=== PATIENT | male | born 1960 | race Caucasian/White ===

== ENCOUNTER 2017-06-05 00:26 | Emergency (ER) | payer BC, OTHER ==
--- NOTE | 2017-06-05 00:59 | ERNOTE ---
Psychological HPI - Date Date of Service: 06/05/17 - General Chief Complaint: Psychiatric Problem Source: Reports: patient, police - Immun/Allergies/Home Medications Allergies/Adverse Reactions: Allergies No Known Allergies Allergy (Verified 06/05/17 01:52) Home Medications: HOME MEDICATIONS Levothyroxine Sodium [Synthroid] 75 mcg PO DAILY 04/27/13 [Last Taken 04/28/13] Multivitamins [Multivitamin Eduardo] 1 cap PO DAILY 04/28/13 [Last Taken 04/28/13 ] Acetaminophen [Tylenol] 650 mg PO Q4H PRN #0 tablet 04/30/13 [Last Taken Unknown ] Cephalexin 500 mg PO BID #24 tablet 04/30/13 [Last Taken Unknown] Metoprolol Tartrate [Lopressor] 50 mg PO BID #0 tablet 04/30/13 [Last Taken Unknown] Neomycin/Bacitracin/Polymyxinb [Neosporin Ointment] 1 appl TP DAILY@0700 #0 tube 04/30/13 [Last Taken Unknown] Sulfamethoxazole/Trimethoprim [Bactrim Ds] 1 tab PO BID #123 tablet 04/30/13 [ Last Taken Unknown] amLODIPine BESYLATE [Norvasc] 5 mg PO BID #0 tablet 04/30/13 [Last Taken Unknown ] - History of Present Illness Narrative: This is a 56-year-old gentleman brought in by the police with complaint of suicidal ideation. The patient was apparently stopped this evening for speeding. When the precinct police sergeant was going to run his license plate the patient fled and let the police on a case. They finally apprehended him. His blood alcohol blew out at 140 or higher. The patient admits that he has been drinking. When he was being interviewed by the police he admitted that he has daily suicidal thoughts. His plan is to run in front of a truck when he is on his motorcycle. The patient denies any other substance abuse. He denies any other complaints. He says he has drank daily for years. He says it's gotten worse over the last 2 years. He got 2 years ago. He was because of the alcohol abuse. The patient stated to me "I would never kill myself because I'm too chicken" Review of Systems - Review of Systems Constitutional: Present: no symptoms reported EYE: Present: no symptoms reported ENT: Present: no symptoms reported Respiratory: Present: no symptoms reported Cardiology: Present: no symptoms reported Gastrointestinal/Abdominal: Present: no symptoms reported Genitourinary: Present: no symptoms reported Musculoskeletal: Present: no symptoms reported Skin: Present: no symptoms reported Neurological: Present: no symptoms reported Endocrine: Present: no symptoms reported Hematologic/Lymphatic: Present: no symptoms reported Psych: Present: See HPI, depressed All Other Systems: All systems neg except as marked - Patient's Past Medical History Patient History - Medical: Diabetes Type 1 Patient History - Cardiac/Respiratory: Hypertension, Hyperlipidemia Patient History - Cancer: No Hx of Cancer Patient History - Surgical Procedures: Noncontributory Patient History - Other: None - Social History Living Situations: home Psych History: Hx of Depression Smoking Status: Never smoker Alcohol Use: heavy Drug Use: none Psychological Exam - Exam General Appearance: Present: wd/wn, alert, no apparent distress Head Exam: Present: normal inspection, no evidence of injury Neurological: Present: alert, calm, physician internist II-XII nml as tested, anxious, depressed affect. Absent: normal mood/affect Thoughts/Hallucinations: Present: no apparent hallucination Behavior/Eye Contact/Speech: Present: cooperative, good eye contact, normal speech ENT Exam normal except (see below): Yes Ears, Nose, Throat: Present: normal ENT inspection, normal pharynx Neck: Present: normal inspection, nontender Respiratory: Present: no respiratory distress, normal breath sounds, no accessory muscle use, lungs clear Cardiovascular/Chest: Present: regular rate, rhythm, no murmur, normal peripheral pulses Gastrointestinal/Abdominal: Present: normal bowel sounds, nontender, nondistended Back Exam: Present: normal inspection, normal range of motion, no CVA tenderness , no vertebral tenderness Extremity Exam: Present: normal inspection, non-tender, normal range of motion, no edema Skin Exam: Present: normal color, warm/dry, no cyanosis Lymphatic Exam: Present: no adenopathy ED Progress - Results and Orders Patient's Lab Results:: I have reviewed the patient's lab results. - Vital Signs Patient's Vital Signs:: I have reviewed the patient's vital signs. Vital Signs: Vital Signs 06/05/17 00:40 Temperature 36.7 C Pulse Rate 122 H Respiratory 18 Rate Blood Pressure 166/111 O2 Sat by Pulse 94 Oximetry - Progress/Reassessment Chief Complaint: Psychiatric Problem Progress:: Unchanged Departure Clinical Impression: Suicidal ideation, Alcohol abuse - Departure Disposition: Detention Instructions: Suicidal Feelings: How to Help Yourself, Alcohol Use Disorder Additional Instructions: As we discussed, your labs and studies are all essentially normal. Her use of alcohol is caused a significant amount of impairment and problems with her life. He needs to get some help with her alcohol abuse. He can present herself to any emergency department at any time and ask for help. You can talk to your family doctor and ask for help. There are multiple phone numbers available which you can call with looking in the phone book or looking on the Internet to get help. No one can help you if you are not willing to help herself. When you are released from nursing home and I want you to call and set up an appointment with a psychiatrist. Call and set up an appointment with the family physician. If you are feeling like hurting herself you may return to the emergency department. Major get plenty to drink in terms of water and other fluids. Try to eat well. Return to the ER for new or worrisome symptoms Referrals: Manan Daigle MD [Primary Care Provider] -
[2017-06-05 01:32] LABS: Cocaine Ur Negative (NEGATIVE); Urine Barbiturate Negative (NEGATIVE); Urine Benzodiazepines Negative (NEGATIVE); Urine Opiates Negative (NEGATIVE); Urine PCP Negative (NEGATIVE); Urine THC Negative (NEGATIVE)
[2017-06-05 01:32] LABS: Hematocrit 42.5 % (42.0-52.0); Hemoglobin 14.3 gm/dL (13.5-18.0); Mean Cell Volume 83.5 fl (78-100); Mean Corpuscular Hemoglobin 28.1 pg (27-31); Mean Corpuscular Hgb Conc 33.6 g/dl (32-36); Mean Platelet Volume 10.1 fl (6.0-9.5); Neutrophil # 4.7 K/mm3 (1.3-6.0); Platelet Count 267 K/mm3 (150-450); Red Blood Count 5.09 M/mm3 (4.7-6.0); Red Cell Distribution Width 13.2 % (11.5-14.0); White Blood Count 7.2 K/mm3 (4.0-10.5)
[2017-06-05] MEDS ORDERED: NORMAL SALINE 1,000 ML IV ONE (01:36)
[2017-06-05 01:47] LABS: ALT 42 U/L (19-67); AST 29 U/L (0-48); Albumin * 4.1 gm/dl (3.4-5.0); Alkaline Phosphatase * 73 U/L (50-170); Anion Gap 19.7 mmol/L (6.8-13.8); BUN/Creatinine Ratio 7.3 (9.0-21.6); Bilirubin, Total 0.4 mg/dL (0.0-1.1); Blood Urea Nitrogen 9 mg/dL (6-23); Ca. Corrected For Albumin 8.1 mg/dL (8.4-10.2); Calcium * 8.5 mg/dL (7.9-10.9); Carbon Dioxide 22.2 mmol/L (24-32.6); Chloride 100 mmol/L (97-106); Glucose * 182 mg/dL (70-110); Lipase 111 U/L (73-393); Potassium 3.9 mmol/L (3.4-4.6); Salicylate 2.8 mg/dL (2.8-20.0); Sodium 138 mmol/L (132-142); Total Protein 8.2 gm/dL (6.2-8.2)
[2017-06-05 03:34] VITALS: BP 143/101
== END 2017-06-05 02:48 ==
LOC: ER 00:26
DX: F10.10 Alcohol abuse, uncomplicated (principal); R45.851 Suicidal ideations
CPT/HCPCS: 36415; 80053; 80307; 83690; 85025; 99282; G0480; G0481

== ENCOUNTER 2017-06-06 16:32 | Emergency (ER) | payer BC ==
--- NOTE | 2017-06-06 17:30 | ERNOTE ---
Medical Problem HPI - Narrative Date of Service: 06/06/17 - General Chief Complaint: General Assessment Time Seen by Provider: 06/06/17 17:22 Source: patient, RN notes reviewed Exam Limitations: no limitations - Immun/Allergies/Home Medications Immunizations: IMMUNIZATION HX Immunizations Up to Date Yes History of Influenza Vaccine No Hx Pneumococcal Vaccination No Allergies/Adverse Reactions: Allergies No Known Allergies Allergy (Verified 06/06/17 16:44) Home Medications: HOME MEDICATIONS Levothyroxine Sodium [Synthroid] 75 mcg PO DAILY 04/27/13 [Last Taken 04/28/13] Multivitamins [Multivitamin Eduardo] 1 cap PO DAILY 04/28/13 [Last Taken 04/28/13 ] Acetaminophen [Tylenol] 650 mg PO Q4H PRN #0 tablet 04/30/13 [Last Taken Unknown ] Cephalexin 500 mg PO BID #24 tablet 04/30/13 [Last Taken Unknown] Metoprolol Tartrate [Lopressor] 50 mg PO BID #0 tablet 04/30/13 [Last Taken Unknown] Neomycin/Bacitracin/Polymyxinb [Neosporin Ointment] 1 appl TP DAILY@0700 #0 tube 04/30/13 [Last Taken Unknown] Sulfamethoxazole/Trimethoprim [Bactrim Ds] 1 tab PO BID #123 tablet 04/30/13 [ Last Taken Unknown] amLODIPine BESYLATE [Norvasc] 5 mg PO BID #0 tablet 04/30/13 [Last Taken Unknown ] HYDROcodone/ACETAMINOPHEN [Levan 5-325] 1 - 2 tab PO Q6H PRN #16 tab 06/06/17 [ Last Taken Unknown] - History of Present History Narrative: 56 year old male presents to the ED for left lower anterior rib pain and bruising to his left upper arm. This occurred when he was arrested last night. He is not forthcoming about the details of the mechanism of injury. He has not been taking anything for pain. Date (Duration): 06/06/17 Review of Systems - Review of Systems Constitutional: Absent: fever, chills, malaise EYE: Present: no symptoms reported ENT: Present: no symptoms reported Respiratory: Absent: shortness of breath, cough, wheezing Cardiology: Absent: palpitations, syncope Gastrointestinal/Abdominal: Absent: nausea, vomiting, abdominal pain Genitourinary: Present: no symptoms reported Musculoskeletal: Present: muscle pain. Absent: joint pain, joint swelling Skin: Absent: rash, lesions Neurological: Absent: headache, weakness, numbness, tingling Endocrine: Present: no symptoms reported Hematologic/Lymphatic: Absent: easy bruising, easy bleeding Psych: Present: no symptoms reported - Patient's Past Medical History Patient History - Medical: Depression Patient History - Cardiac/Respiratory: Hypertension, Hyperlipidemia Patient History - Cancer: No Hx of Cancer Patient History - Surgical Procedures: Other Patient History - Other: None - Social History Living Situations: home Psych History: Hx of Depression Smoking Status: Never smoker Alcohol Use: heavy Drug Use: none - Immunizations Immunizations Up to Date: Yes Hx Pneumococcal Vaccination: No History of Influenza Vaccine: No Physical Exam - Physical Exam General Appearance: Present: wd/wn, alert, no apparent distress Head Exam: Present: normal inspection, no evidence of injury Neck: Present: normal inspection, nontender, supple, full range of motion Respiratory: Present: no respiratory distress, normal breath sounds, no accessory muscle use, lungs clear, chest tenderness - Left anterior lower ribs Cardiovascular/Chest: Present: regular rate, rhythm, no murmur Gastrointestinal/Abdominal: Present: nontender, nondistended, soft Extremity Exam: Present: normal range of motion, no edema, other - Contusion to left bicep region. Absent: bony tenderness, joint swelling Neurological Exam: Present: alert, oriented, normal mood/affect, no motor/ sensory deficits Skin Exam: Present: normal color, warm/dry ED Progress - Vital Signs Patient's Vital Signs:: I have reviewed the patient's vital signs. Vital Signs: Vital Signs 06/06/17 06/06/17 16:40 17:13 Temperature 37.0 C 37.3 C Pulse Rate 106 H 121 H Respiratory 16 16 Rate Blood Pressure 153/95 133/102 O2 Sat by Pulse 95 94 Oximetry - X-Ray X-Ray #1 X-Ray: ribs - Left Interpretation: Interp. by me X-ray Comments: No fracture identified - Progress/Reassessment Chief Complaint: General Assessment Progress:: Unchanged Departure - Departure Clinical Impression: Contusion of rib on left side Qualifiers: Encounter type: initial encounter Qualified Code(s): S20.212A - Contusion of left front wall of thorax, initial encounter Contusion of upper arm, left Qualifiers: Encounter type: initial encounter Qualified Code(s): S40.022A - Contusion of left upper arm, initial encounter Disposition: Home self-care Condition: Good Instructions: Rib Contusion Additional Instructions: Ice/heat to sore areas Tylenol and/or ibuprofen for pain Prescription pain medication may cause constipation - do not take it with Tylenol as it does contain the same medication Referrals: Manan Daigle MD [Primary Care Provider] - Prescriptions: HYDROcodone/ACETAMINOPHEN [Levan 5-325] 1 - 2 tab PO Q6H PRN #16 tab PRN Reason: Pain
[2017-06-06 18:27] VITALS: BP 130/94
== END 2017-06-06 18:27 | disposition home or self-care (01) ==
LOC: ER 16:32
DX: S20.212A Contusion of left front wall of thorax, initial encounter (principal); S40.022A Contusion of left upper arm, initial encounter; Y35.93XA Legal intervention, means unspecified, suspect injured, initial encounter; Y93.9 Activity, unspecified; Y92.9 Unspecified place or not applicable; Y99.9 Unspecified external cause status